=== PATIENT | male | born 1950 | race Caucasian/White ===

== ENCOUNTER → 2019-09-03 12:30 | Outpatient (BNVA) | payer OTHER, SELFPAY | PROVIDERS: Family Provider Internal Medicine; PCP Internal Medicine; Visit Provider Internal Medicine Rheumatology | DX: M25.541 Pain in joints of right hand (principal); M25.542 Pain in joints of left hand; M25.521 Pain in right elbow; M25.522 Pain in left elbow; L40.0 Psoriasis vulgaris; M54.5 Low back pain | CPT/HCPCS: 99213 ==

== ENCOUNTER 2019-10-01 06:43 | Outpatient (CLI) | payer OTHER, SELFPAY ==
[2019-10-01 06:53] VITALS: BMI 28.0
--- NOTE | 2019-10-01 07:00 | SUR.PREOP ---
Awaiting clarification of stress test order. Order states cardiac sestamibi stress request but lacks the test detail, so clarification of stress type needed. Admissions aware. Nuclear injection holding until clarification can be made to electronic order from [facility]. Dr Muñoz's note seached for clarification, but it does not specify which stress type for the myocardial perfusion imaging.
--- NOTE | 2019-10-01 07:51 | ECG_ITS ---
NAME OF STUDY: LEXISCAN SESTAMIBI STRESS TEST INDICATION: Chest Pain PROCEDURE: At the baseline, the EKG revealed sinus bradycardia with a nonspecific ST changes. The baseline blood pressure was 136/108 mm Hg with a heart rate of 57 beats/min. Lexiscan was infused over a period of 20 seconds. A total of 0.4 milligrams of Lexiscan was infused. The stress phase was continued for a total of 5 minutes. Heart rate at the end of the stress phase was 89 with a blood pressure 125/73. The EKG at the peak infusion revealed diffuse nonspecific T wave changes. Sestamibi was injected 20 seconds after the Lexiscan infusion. Blood pressure at the end of the recovery phase was 137/80 with a heart rate of 89 per minute. CONCLUSION: 1. Nonspecific EKG changes with the LexiScan infusion 2. No LexiScan induced chest pain or cardiac arrhythmia 3. Normal blood pressure and heart rate response 4. Sestamibi/sestamibi perfusion scan pending; see separate report. Electronically Signed On 10-01-2019 15:03:49 COUNTY COMMISSIONER by Juanjose Muñoz M.D. [id number]
--- NOTE | 2019-10-01 07:51 | NMCV_ITS ---
NM calli perf SPECT r/s* [id number] Zacarias Moyer Age: 69 Gender: M : 1950 Exam Date: 10/01/2019 07:51 Ordering Phys: Juanjose Muñoz MD ([email or web address]) Technologist: AIME Hutchinson Exam Location: [facility] Indications: Chest pain STRESS TEST Please see separate stress test report in [facility] for full findings IMAGE PROTOCOL Rest/Stress 1 Lexiscan Day Radiopharmaceutical Dose (mCi) Administration Site Administered by Rest: Tc-99m 10.7 IV AIME Hutchinson Sestamibi Stress:Tc-99m 32.6 IV AIME Hutchinson Sestamirio Rest: 01-Oct-2019 60 Discovery 630 Stress: 01-Oct-2019 45 Discovery 630 0.4mg Lexiscan. Images obtained in supine and prone position. SPECT RESULTS Technical Quality: Good Raw Data Analysis: Normal Image Corrections: Patient motion artifact -partial motion correction applied to stress supine images. Summed Stress Score: 0 Summed Rest Score: 0 Summed Difference Score: 0 PERFUSION FINDINGS Patchy areas of slightly decreased tracer uptake were noted in the anterior wall and lateral wall regions. No significant reversibility was noted in these regions. FUNCTIONAL RESULTS (calculated via Gated SPECT) Stress Image LV EF (%): 70 Stress EDV (mL):77 TID: 0.96 Stress ESV (mL):23 FUNCTIONAL FINDINGS: Segmental wall motion analysis revealing no gross wall motion normalities IMPRESSIONS 1. Unremarkable myocardial perfusion imaging. 2. Normal LV ejection fraction of 70%. 3. LV wall motion analysis revealing no gross wall motion normalities. 4. Normal LV volumJe. No significant coronary ischemia, based on the above findings Dr Juanjose Muñoz MD [facility] (Electronically Signed) Final Date: 01 October 2019 13:37 S
--- NOTE | 2019-10-01 10:02 | SUR.PREOP ---
Patient reports no pain or discomfort prior to the start of the procedure.
[2019-10-01] MEDS: regadenoson 0.4 Mg/5 ml Syringe IVP (10:03)
[2019-10-01 10:16] VITALS: BP 137/80; PULSE 92
--- NOTE | 2019-10-01 11:07 | USCV_ITS ---
Zacarias Moyer Age: 69 Gender: M : 1950 Exam Date: 10/01/2019 11:24 Ordering Phys: Juanjose Muñoz MD ([email or web address]) Technologist: Claribel Hernandez Exam Location: [facility] [place] Indication: MURMUR BP: 146 / 84 HR: 67 Rhythm: Sinus Technical Quality: Adequate MEASUREMENTS (Male / Female) Normal Values 2D ECHO LV Diastolic Diameter PLAX 5.0 cm 4.2 - 5.9 / 3.9 - 5.3 cm LV Systolic Diameter PLAX 3.6 cm LV Chamber Size 4.3 cm IVS Diastolic Thickness 0.9 cm 0.6 - 1.0 / 0.6 - 0.9 cm IVS Systolic Thickness 2.2 cm LVPW Diastolic Thickness 0.7 cm 0.6 - 1.0 / 0.6 - 0.9 cm LVPW Systolic Thickness 1.7 cm RV Chamber Size 3.2 cm LVOT Diameter 2.0 cm LV Ejection Fraction 2D Teich 53.3 % LV Ejection Fraction MOD 2C 76.7 % LV Ejection Fraction 2C AL 76.8 % LA Diameter 3.4 cm LA Width 3.7 cm LA Height 4.6 cm RA Width 2.7 cm RA Height 3.7 cm M-MODE LV Diastolic Diameter MM 5.9 cm 4.2 - 5.9 / 3.9 - 5.3 cm LV Systolic Diameter MM 4.1 cm LV Ejection Fraction MM Teich 57.5 % IVS Diastolic Thickness MM 1.5 cm 0.6 - 1.0 / 0.6 - 0.9 cm IVS Systolic Thickness MM 1.1 cm LVPW Diastolic Thickness MM 1.2 cm 0.6 - 1.0 / 0.6 - 0.9 cm LVPW Systolic Thickness MM 1.5 cm Aortic Annulus Diameter 3.4 cm LA Ao Ratio MM 1.2 MV E Point Septal Separation 0.2 cm DOPPLER AV Peak Velocity 250.0 cm/s LVOT Peak Velocity 90.0 cm/s AV Area Cont Eq vti 1.2 cm squared AV Area Cont Eq pk 1.2 cm squared MV Area PHT 3.9 cm squared Mitral E to A Ratio 1.4 MV E' Velocity 10.0 cm/s Mitral E to MV E' Ratio 7.8 Mitral E to LV E' Lateral Ratio 7.8 Mitral E to LV E' Septal Ratio 7.8 TR Peak Velocity 165.9 cm/s TR Peak Gradient 11.0 mmHg TR Mean Velocity 122.1 cm/s TR Mean Gradient 6.7 mmHg TR Velocity Time Integral 42.2 cm TV Peak E Velocity 62.0 cm/s PV Peak Velocity 69.0 cm/s FINDINGS Left Ventricle Normal left ventricular size and systolic function, EF 70% . Mild left ventricular hypertrophy. No regional wall motion abnormalities. Right Ventricle Normal right ventricular size and systolic function. Right Atrium Normal right atrial size. Left Atrium Normal left atrial size. Mitral Valve No gross abnormalities noted Aortic Valve Moderate aortic valve stenosis, mean gradient 15.3 mmHg, MAGGIE 1.2 cm squared. Peak velocity of 2.5 m/s with a peak gradient of 25 mmHg Tricuspid Valve Trace tricuspid valve regurgitation. Pulmonic Valve No gross abnormalities noted Pericardium Normal pericardium without effusion. Aorta Normal ascending aorta dimension. CONCLUSIONS Normal left ventricular size and systolic function, EF 70% . Mild left ventricular hypertrophy. No regional wall motion abnormalities. Moderate aortic valve stenosis, mean gradient 15.3 mmHg, MAGGIE 1.2 cm squared. Peak velocity of 2.5 m/s with a peak gradient of 25 mmHg. Trace tricuspid valve regurgitation. There is no pericardial effusion. There are no intracardiac masses. No previous study is available for comparison. Dr Juanjose Muñoz MD [facility] (Electronically Signed) Final Date: 01 October 2019 13:48 S
== END 2019-10-01 06:44 | disposition home or self-care (01) ==
PROVIDERS: Family Provider Internal Medicine; PCP Internal Medicine; Visit Provider Internal Medicine Cardiovascular Disease
DX: I08.2 Rheumatic disorders of both aortic and tricuspid valves (principal); R07.9 Chest pain, unspecified; R01.1 Cardiac murmur, unspecified
CPT/HCPCS: 78452; 93017; 93306; A9500; J2785

== ENCOUNTER 2021-05-17 09:06 | Outpatient (CLI) | payer OTHER, SELFPAY ==
[2021-05-17 09:36] LABS: Basophils # 0.1 10^3/uL (0.0-0.1); Basophils % 1.1 %; Eosinophils # 0.2 10^3/uL (0.0-0.8); Hematocrit 47.7 % (42.0-52.0); Hemoglobin 15.8 g/dL (11.7-16.6); Lymphocytes # 1.4 10^3/uL (0.8-4.8); Lymphocytes % 22.5 %; Mean Corpuscular HGB Conc 33.1 g/dL (30.0-36.0); Mean Corpuscular Volume 96.8 fl (80-94); Mean Platelet Volume 10.6 fL (7.4-10.4); Monocytes # 0.4 10^3/uL (0.2-0.9); Monocytes % 6.6 %; Neutrophils # 4.06 10^3/uL (1.8-7.7); Neutrophils % 66.5 %; Nucleated Red Blood Cells % 0 %; Platelet Count 157 10^3/cmm (130-400); Red Blood Count 4.93 10^6/uL (4.1-5.3); Red Cell Distribution Width 11.9 % (12.1-15.1); White Blood Count 6.1 10^3/uL (4.0-10.0)
[2021-05-17 10:01] LABS: Alanine Aminotransferase 22 U/L (0-41); Albumin Level 4.2 g/dL (3.5-5.2); Alkaline Phosphatase 74 IU/L (40-130); Anion Gap 12.1 (5-19); Aspartate Amino Transferase 25 U/L (0-40); Blood Urea Nitrogen 7 mg/dL (8-23); Calcium 9.4 mg/dL (8.5-10.5); Carbon Dioxide 31 mmol/L (22-29); Chloride 99 mmol/L (98-107); Globulin 2.7 g/dL (1.3-4.6); Glomerular Filtration Rate 83.7 mL/min (90-130); Glucose 142 mg/dL (65-115); Osmolality Calculated 284 mOsm/kg (285-295); Potassium 5.1 mmol/L (3.5-5.1); Sodium 137 mmol/L (136-145); Total Bilirubin 0.8 mg/dL (0.15-1.2); Total Protein 6.9 g/dL (6.6-8.7)
[2021-05-17 10:46] LABS: HIV 1 & 2 Antibody Non-Reactive (Non-Reactiv); HIV 1 & 2 Antigen Non-Reactive (Non-Reactiv)
[2021-05-17 11:33] LABS: Hepatitis A Antibody IgM Non-Reactive (Nonreactive); Hepatitis B Core AB, Total Non-Reactive (Nonreactive); Hepatitis B Surface AB 3.5 (11.5-1000); Hepatitis B Surface Antigen Non-Reactive (Nonreactive); Hepatitis C Virus Antibody Non-Reactive (Nonreactive)
[2021-05-19 13:24] LABS: Quantiferon Mitogen >10.00 IU/mL; Quantiferon Nil 0.02 IU/mL; Quantiferon Plus TB1 <0.00 IU/mL; Quantiferon TB Gold NEGATIVE (NEGATIVE)
== END 2021-05-17 09:07 | disposition home or self-care (01) ==
LOC: LAB 09:10
PROVIDERS: PCP Family Medicine; Visit Provider Dermatology
DX: L40.0 Psoriasis vulgaris (principal)
CPT/HCPCS: 36415; 80053; 85025; 86480; 86705; 86706; 86709; 86803; 87340; 87806

== ENCOUNTER → 2022-02-01 13:32 | Outpatient (BNVA) | payer OTHER, SELFPAY | PROVIDERS: PCP Family Medicine; Visit Provider Internal Medicine Cardiovascular Disease | DX: I35.0 Nonrheumatic aortic (valve) stenosis (principal); I10 Essential (primary) hypertension; E78.2 Mixed hyperlipidemia; E11.9 Type 2 diabetes mellitus without complications; J44.9 Chronic obstructive pulmonary disease, unspecified; F17.200 Nicotine dependence, unspecified, uncomplicated; Z79.84 Long term (current) use of oral hypoglycemic drugs | CPT/HCPCS: 99214 ==

== ENCOUNTER 2022-02-16 11:27 | Outpatient (RCR) | payer OTHER, SELFPAY | END 2022-02-23 23:59 | disposition home or self-care (01) | LOC: SPT 11:27 | PROVIDERS: PCP Family Medicine; Referring Provider Family Medicine; Visit Provider Family Medicine | DX: M25.511 Pain in right shoulder (principal); M25.611 Stiffness of right shoulder, not elsewhere classified | CPT/HCPCS: 97161 ==

== ENCOUNTER 2022-02-16 13:32 | Outpatient (CLI) | payer OTHER, SELFPAY ==
--- NOTE | 2022-02-16 14:15 | USCV_ITS ---
Zacarias Moyer Age: 71 Gender: M : 1950 Exam Date: 02/16/2022 14:06 Ordering Phys: Juanjose Muñoz MD ([email or web address]) Technologist: JERMAINE [place]am [place] [facility] [place] Indication: BP: 135 / 86 HR: 60 Rhythm: Sinus Technical Quality: Adequate MEASUREMENTS (Male / Female) Normal Values 2D ECHO LV Diastolic Diameter PLAX 4.6 cm 4.2 - 5.9 / 3.9 - 5.3 cm LV Systolic Diameter PLAX 3.7 cm IVS Diastolic Thickness 1.0 cm 0.6 - 1.0 / 0.6 - 0.9 cm IVS Systolic Thickness 1.6 cm LVPW Diastolic Thickness 1.0 cm 0.6 - 1.0 / 0.6 - 0.9 cm LVPW Systolic Thickness 1.4 cm LVOT Diameter 2.0 cm LV Ejection Fraction 2D Teich 40.3 % LV Ejection Fraction MOD 2C 50.0 % LV Ejection Fraction 2C AL 50.3 % LA Diameter 3.4 cm RA Width 3.6 cm RA Height 4.8 cm Aorta at Sinotubular Diameter 2.8 cm M-MODE Aortic Annulus Diameter 2.7 cm LA Ao Ratio MM 1.4 MV E Point Septal Separation 0.5 cm DOPPLER AV Peak Velocity 227.0 cm/s LVOT Peak Velocity 69.0 cm/s AV Area Cont Eq vti 1.1 cm squared AV Area Cont Eq pk 1.0 cm squared MV Area PHT 5.0 cm squared Mitral E to A Ratio 1.4 MV E' Velocity 41.0 cm/s Mitral E to MV E' Ratio 10.4 Mitral E to LV E' Lateral Ratio 9.2 Mitral E to LV E' Septal Ratio 12.1 TR Peak Velocity 219.0 cm/s TR Peak Gradient 19.2 mmHg Right Atrial Pressure 3.0 mmHg Pulmonary Artery Systolic Pressu 22.2 mmHg PV Peak Velocity 87.0 cm/s FINDINGS Left Ventricle Normal left ventricular size and systolic function, EF 56 %. No regional wall motion abnormalities. Grade I/IV diastolic dysfunction (abnormal relaxation filling pattern), normal to mildly elevated filling pressures. Right Ventricle The right ventricle is normal in size and function. Right Atrium The right atrium is normal in size. Left Atrium The left atrium is normal in size. Mitral Valve No gross abnormalities noted Aortic Valve Thickened aortic valve. Moderate aortic valve stenosis, mean gradient 10.4 mmHg, MAGGIE 1.1 cm squared. Tricuspid Valve Trace tricuspid valve regurgitation. Estimated pulmonary artery peak systolic pressure 22 mmHg Pulmonic Valve No gross abnormalities noted Pericardium Normal pericardium without effusion. Aorta Normal ascending aorta dimension. IVC The inferior vena cava pulmonary and hepatic veins appear normal. CONCLUSIONS Normal left ventricular size and systolic function, EF 56 %. No regional wall motion abnormalities. Grade I/IV diastolic dysfunction (abnormal relaxation filling pattern), normal to mildly elevated filling pressures. Moderate aortic valve stenosis, mean gradient 10.4 mmHg, MAGGIE 1.1 cm squared. Trace tricuspid valve regurgitation. Estimated pulmonary artery peak systolic pressure 22 mmHg. There is no pericardial effusion. There are no intracardiac masses. Compared to the study from 10/01/2019, there may not be a significant change Dr Juanjose Muñoz MD [facility] (Electronically Signed) Final Date: 20 February 2022 08:53 S
== END 2022-02-16 13:33 | disposition home or self-care (01) ==
LOC: RAD 13:32
PROVIDERS: PCP Family Medicine; Visit Provider Internal Medicine Cardiovascular Disease
DX: R06.00 Dyspnea, unspecified (principal); I35.0 Nonrheumatic aortic (valve) stenosis
CPT/HCPCS: 93306

== ENCOUNTER 2022-02-24 06:00 | Outpatient (RCR) | payer OTHER, SELFPAY | END 2022-03-26 23:59 | disposition home or self-care (01) | LOC: SPT 06:00 | PROVIDERS: PCP Family Medicine; Referring Provider Family Medicine; Visit Provider Family Medicine | DX: M25.511 Pain in right shoulder (principal); M25.611 Stiffness of right shoulder, not elsewhere classified | CPT/HCPCS: 97110 ==

== ENCOUNTER 2022-03-27 06:00 | Outpatient (RCR) | payer OTHER, SELFPAY | END 2022-04-26 23:59 | disposition home or self-care (01) | LOC: SPT 06:00 | PROVIDERS: PCP Family Medicine; Visit Provider Family Medicine | DX: M25.511 Pain in right shoulder (principal) | CPT/HCPCS: 97110 ==

== ENCOUNTER 2022-06-13 15:07 | Outpatient (CLI) | payer OTHER, SELFPAY ==
[2022-06-13 16:04] LABS: Basophils # 0.1 10^3/uL (0.0-0.1); Basophils % 0.8 %; Eosinophils # 0.2 10^3/uL (0.0-0.8); Eosinophils % 2.3 %; Hemoglobin 14.4 g/dL (11.7-16.6); Lymphocytes # 1.4 10^3/uL (0.8-4.8); Lymphocytes % 17.8 %; Mean Corpuscular HGB Conc 33.5 g/dL (30.0-36.0); Mean Corpuscular Hemoglobin 33.7 pg (28.0-34.0); Mean Corpuscular Volume 100.7 fl (80-94); Monocytes # 0.4 10^3/uL (0.2-0.9); Monocytes % 4.9 %; Neutrophils # 5.84 10^3/uL (1.8-7.7); Neutrophils % 73.8 %; Nucleated Red Blood Cells % 0 %; Platelet Count 156 10^3/cmm (130-400); Red Blood Count 4.27 10^6/uL (4.1-5.3); Red Cell Distribution Width 12.2 % (12.1-15.1); White Blood Count 7.9 10^3/uL (4.0-10.0)
[2022-06-13 16:28] LABS: Alanine Aminotransferase 11 U/L (0-41); Albumin Level 4.2 g/dL (3.5-5.2); Alkaline Phosphatase 64 U/L (40-130); Anion Gap 13.2 (5-19); Aspartate Amino Transferase 16 U/L (0-40); Blood Urea Nitrogen 7 mg/dL (8-23); Carbon Dioxide 29 mmol/L (22-29); Chloride 98 mmol/L (98-107); Globulin 2.5 g/dL (1.3-4.6); Glucose 94 mg/dL (65-115); Osmolality Calculated 280 mOsm/kg (285-295); Potassium 4.2 mmol/L (3.5-5.1); Sodium 136 mmol/L (136-145); Total Bilirubin 0.8 mg/dL (0.15-1.2); Total Protein 6.7 g/dL (6.6-8.7)
[2022-06-13 16:53] LABS: Hepatitis A Antibody IgM Non-Reactive (Nonreactive); Hepatitis B Core AB, Total Non-Reactive (Nonreactive); Hepatitis B Surface AB 3.5 (11.5-1000); Hepatitis B Surface Antigen Non-Reactive (Nonreactive); Hepatitis C Virus Antibody Non-Reactive (Nonreactive)
[2022-06-13 18:39] LABS: HIV 1 & 2 Antibody Non-Reactive (Non-Reactiv); HIV 1 & 2 Antigen Non-Reactive (Non-Reactiv)
[2022-06-15 13:04] LABS: Quantiferon Mitogen >10.00 IU/mL; Quantiferon Nil 0.01 IU/mL; Quantiferon TB Gold NEGATIVE (NEGATIVE)
== END 2022-06-13 15:08 | disposition home or self-care (01) ==
LOC: LAB 15:11
PROVIDERS: PCP Family Medicine; Visit Provider Nurse Practitioner Family
DX: Z79.899 Other long term (current) drug therapy (principal); L40.0 Psoriasis vulgaris
CPT/HCPCS: 36415; 80053; 85025; 86480; 86705; 86706; 86709; 86803; 87340; 87806

== ENCOUNTER → 2022-08-09 15:36 | Outpatient (BNVA) | payer OTHER, SELFPAY | PROVIDERS: PCP Family Medicine; Visit Provider Internal Medicine Cardiovascular Disease | DX: R07.89 Other chest pain (principal); I35.0 Nonrheumatic aortic (valve) stenosis; I10 Essential (primary) hypertension; E78.2 Mixed hyperlipidemia; Z79.84 Long term (current) use of oral hypoglycemic drugs; E11.9 Type 2 diabetes mellitus without complications; J44.9 Chronic obstructive pulmonary disease, unspecified; F17.200 Nicotine dependence, unspecified, uncomplicated | CPT/HCPCS: 99214 ==

== ENCOUNTER → 2022-09-04 12:55 | Outpatient (BNVA) | payer OTHER, SELFPAY | PROVIDERS: PCP Family Medicine; Visit Provider Specialist | DX: S83.206D Unspecified tear of unspecified meniscus, current injury, right knee, subsequent encounter (principal); V86.95XD Unspecified occupant of 3- or 4- wheeled all-terrain vehicle (ATV) injured in nontraffic accident, subsequent encounter; M25.561 Pain in right knee | CPT/HCPCS: 73560; 73565; 99204 ==

== ENCOUNTER 2022-09-19 09:19 | Outpatient (CLI) | payer OTHER, SELFPAY ==
--- NOTE | 2022-09-19 09:30 | MR_ITS ---
WS: [id number] MRI RIGHT KNEE HISTORY: right knee pain, positive Juliana's sign COMPARISON: MRI 03/30/2008. Prior radiograph 09/04/2022 Anterior cruciate ligament: Anterior cruciate ligament is abnormal. Horizontal orientation of the cru ciate and abuts the PCL. Torn ACL was noted on the prior MRI. The ACL is scarred down and fibrosis to the PCL. There is no edema within the ACL to suggest an acute injury. Posterior cruciate ligament: Intact. Medial collateral ligament: Intact. Posterior lateral corner structures: Intact. Medial menisci: Abnormal posterior horn. Small caliber with blunting and abnormal signal throughout t he meniscus into the meniscal root. Complex tear identified. Similar appearance to the prior study. Lateral meniscus: Abnormal posterior meniscus. Blunting of the free edge with intrasubstance degenera tion. There is increased fluid and T2 signal at the meniscal capsular junction suggesting partial sep aration. Extensor mechanism: Distal quadriceps tendon and patellar tendons are intact. Fluid and soft tissue: Small joint effusion. Small Amaro's cyst. Osseous and articular structures: Patellofemoral compartment: Minimal joint space narrowing. No significant cartilage defect. Medial compartment: Moderate narrowing of the medial compartment with complete loss of cartilage invo lving the femoral condyle and tibial plateau. Small subchondral cystic changes along the weightbearin g surface of the femoral condyle. Lateral compartment: Mild narrowing of the lateral compartment. Thinning and fissuring of the cartila ge. Mild posterior subluxation of the femoral condyles with respect to the tibial plateau. Very small popliteal cyst or ganglion measures 16 x 8 mm. MR/MR knee RT wo con* [id number] IMPRESSION: 1. 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 2. Complex tear posterior horn medial meniscus. Tear involves a large portion of the meniscus. 3. Blunted free edge posterior horn lateral meniscus. Increased fluid near the meniscal capsular junction suggesting at least a partial separation. 4. Moderate narrowing medial compartment with complete loss of cartilage. 5. Small joint effusion and small Amaro's cyst.
== END 2022-09-19 09:20 | disposition home or self-care (01) ==
LOC: RAD 09:23
PROVIDERS: PCP Family Medicine; Visit Provider Specialist
DX: M71.21 Synovial cyst of popliteal space [Baker], right knee; S83.241A Other tear of medial meniscus, current injury, right knee, initial encounter; X58.XXXA Exposure to other specified factors, initial encounter
CPT/HCPCS: 73721

== ENCOUNTER 2022-09-25 08:52 | Outpatient (CLI) | payer OTHER, SELFPAY ==
[2022-09-25 09:06] VITALS: BMI 24.6
--- NOTE | 2022-09-25 09:07 | NMCV_ITS ---
NM calli perf SPECT r/s* [id number] Zacarias Moyer Age: 72 Gender: M : 1950 Exam Date: 09/25/2022 09:48 Ordering Phys: Juanjose Muñoz MD ([email or web address]) Technologist: AIME Tomas Exam Location: [facility] Indications: CORONARY ANGIOPLASTY STATUS STRESS TEST Please [facility] IMAGE PROTOCOL Rest/Stress 1 Lexiscan Day Radiopharmaceutical Dose (mCi) Administration Site Administered by Rest: Tc-99m 10.6 IV AIME Tomas Sestamibi Stress:Tc-99m 32.5 IV AIME Hutchinson Sestamibi Rest: 25-Sep-2022 60 Discovery 630 Stress: 25-Sep-2022 30 Discovery 630 0.4mg Lexiscan. Images obtained in supine and prone position. SPECT RESULTS Technical Quality: Excellent Raw Data Analysis: Normal Image Corrections: No attenuation or motion correction applied Summed Stress Score: 0 Summed Rest Score: 0 Summed Difference Score: 0 PERFUSION FINDINGS Homogenous radiotracer uptake is seen throughout the myocardium. FUNCTIONAL RESULTS (calculated via Gated SPECT) Stress Image LV EF (%): 63 Stress EDV (mL):89 TID: 1.09 Stress ESV (mL):33 FUNCTIONAL FINDINGS: There is normal left ventricular systolic function. IMPRESSIONS 1. Normal myocardial perfusion imaging with no evidence of ischemia 2. LV systolic function is normal Tor Perry MD (Electronically Signed) Final Date: 25 September 2022 12:14 S
--- NOTE | 2022-09-25 09:07 | ECG_ITS ---
[facility] Test Date: 2022-09-25 Pat Name: Zacarias Moyer Department: Room: Gender: Male Materials Supervisor: Sarah MatuteReal : 1950 Requested By: Juanjose Muñoz Order Number: [id number] Natalie MD: Tor Perry M.D. Interpretive Statements NAME OF STUDY: LEXISCAN SESTAMIBI STRESS TEST INDICATION: [Chest Pain, ] Procedure: At the baseline, the blood pressure was 122/73 mmHg with a heart rate of 60 bpm. The electrocardiogram showed normal sinus rhythm, normal axis with normal ST and T's. The Lexiscan was infused over a period of 20 seconds. A total of 0.4 mg of Lexiscan was infused. The stress phase was continued for a total of 5 minutes. Heart rate was at the end of stress phase was 95 bpm and a blood pressure of 136/72 mmHg. The EKG at the peak infusion revealed normal sinus rhythm with no significant ST-T wave changes. Sestamibi was injected 20 seconds after the Lexiscan infusion. Blood pressure at the end of recovery phase was not recorded with a heart rate of 85 bpm. Conclusion: 1. Normal EKG response to Lexiscan infusion 2. No Lexiscan induced chest pain or cardiac arrhythmia. 3. Normal blood pressure and heart rate response. 4. Sestamibi/sestamibi perfusion scan pending; see separate report. Electronically Signed On 10-21-2022 22:51:09 NEUROSURGEON by Tor Perry M.D. [id number]
[2022-09-25] MEDS: regadenoson 0.4 Mg/5 ml Syringe IVP (10:16)
[2022-09-25 10:30] VITALS: BP 124/93; PULSE 85
== END 2022-09-25 08:53 | disposition home or self-care (01) ==
PROVIDERS: PCP Family Medicine; Visit Provider Internal Medicine Cardiovascular Disease
DX: R07.9 Chest pain, unspecified (principal); Z98.61 Coronary angioplasty status
CPT/HCPCS: 36415; 78452; 93017; 96374; A9500; J2785

== ENCOUNTER 2022-10-02 10:11 | Outpatient (CLI) | payer OTHER, SELFPAY ==
--- NOTE | 2022-10-02 10:29 | USCV_ITS ---
Zacarias Moyer Age: 72 Gender: M : 1950 Exam Date: 10/02/2022 10:42 Ordering Phys: Candace Wagoner MD Technologist: TALIA Exam Location: [facility] [place] Indication: AAA Screen HISTORY: Diameter (cm) AP x Transverse x Length Velocity (cm/s) Waveform Prox Aorta: 2.44 x 1.96 x 73.50 Triphasic Mid Aorta: 2.13 x 1.96 x 56.90 Triphasic Distal Aorta: 2.66 x 2.36 x 2.82 72.00 Triphasic Right Iliac Prox: 1.32 x 0.92 x 62.00 Triphasic Left Iliac Prox: 1.44 x 1.23 x 87.50 Triphasic Stent Prox Landing x x Aneurysmal Sac Max x x Lt Lat Sac Dim Rt Lat Sac Dim Stent Dist Landing x x Right Iliac Stent x x Left Iliac Stent x x Right Renal Art Left Renal Art FINDINGS: Small fusiform AAA seen distally. CONCLUSIONS Small fusiform aneurysm distal abdominal aorta measuring 2.6 x 2.3 x 2.8cm AP x trans x CC Normal common iliac arteries Mars Chen MD (Electronically Signed) Final Date: 02 October 2022 15:55 S
== END 2022-10-02 10:12 | disposition home or self-care (01) ==
LOC: RAD 10:22
PROVIDERS: PCP Family Medicine; Visit Provider Family Medicine
DX: Z13.6 Encounter for screening for cardiovascular disorders (principal); I71.40 Abdominal aortic aneurysm, without rupture, unspecified
CPT/HCPCS: 76706

== ENCOUNTER → 2022-10-10 13:44 | Outpatient (BNVA) | payer OTHER, SELFPAY | PROVIDERS: PCP Family Medicine; Visit Provider Otolaryngology | DX: H61.23 Impacted cerumen, bilateral (principal); H92.01 Otalgia, right ear | CPT/HCPCS: 69210; 99202 ==

== ENCOUNTER → 2022-10-11 13:01 | Outpatient (BNVA) | payer OTHER, SELFPAY | PROVIDERS: PCP Family Medicine; Visit Provider Specialist | DX: M17.11 Unilateral primary osteoarthritis, right knee (principal) | CPT/HCPCS: 99214 ==

== ENCOUNTER 2022-10-16 06:51 | Outpatient (CLI) | payer OTHER, SELFPAY ==
--- NOTE | 2022-10-16 | CT_ITS ---
WS: [id number] CT NECK TECHNIQUE: Contrast-enhanced CT of the neck with coronal and sagittal reformatted images. CLINICAL INFORMATION: RIGHT SIDE LYMPH NODE COMPARISON: None. DLP: 228.[address] scans at [facility] use at least one of these dose optimization techniques: automated e xposure control; mA and/or kV adjustment per patient size (includes targeted exams where dose is matc hed to clinical indication); or iterative reconstruction. FINDINGS: Parotid glands are normal. Normal submandibular glands. Tongue base appears normal. Normal posterior nasopharynx. Normal parapharyngeal fat. No evidence of supraglottic or glottic mass. Normal thyroid g land. Mastoid air cells and paranasal sinuses are well aerated. Lung apices are well aerated. Mild carotid bulb calcification. No cervical lymphadenopathy. Moderate spondylitic changes cervical spine. CT/CT neck w con* [id number] IMPRESSION: 1. No acute neck findings. 2. No cervical lymphadenopathy. 3. Normal salivary glands. 4. No evidence of supraglottic or glottic mass.
[2022-10-16] MEDS: iohexol 350 mg/mL 500 mL Btl (per mL) IV (07:18)
[2022-10-16 07:42] LABS: Blood Urea Nitrogen 11 mg/dL (8-23)
== END 2022-10-16 06:52 | disposition home or self-care (01) ==
LOC: RAD 06:52
PROVIDERS: PCP Family Medicine; Visit Provider Family Medicine
DX: Z01.89 Encounter for other specified special examinations (principal); R59.0 Localized enlarged lymph nodes
CPT/HCPCS: 70491; 82565; 84520; Q9967

== ENCOUNTER 2022-10-20 10:08 | Outpatient (CLI) | payer OTHER, SELFPAY ==
--- NOTE | 2022-10-20 10:00 | CT_ITS ---
WS: [id number] CT RIGHT knee, noncontrast HISTORY: Right Total Knee Arthroplasty with ESTEFANY guidance TECHNIQUE: Protocol for ESTEFANY total knee replacement has been obtained. This includes axial imaging th rough the RIGHT hip, RIGHT knee and RIGHT ankle. DLP: 990.17 mGy.cm COMPARISON: Radiographs 09/04/2022 Pelvis: No destructive bone lesions or significant joint space narrowing. RIGHT knee: Mild tricompartment osteoarthritis and joint space narrowing. No fractures or bone destru ction. Small amount of edema and a small joint effusion. Scattered vascular calcifications. RIGHT ankle: Negative. CT/CT knee RT ESTEFANY IMPRESSION: CT imaging provided for ESTEFANY robotic total knee replacement.
== END 2022-10-20 10:09 | disposition home or self-care (01) ==
LOC: RAD 10:10
PROVIDERS: PCP Family Medicine; Visit Provider Specialist
DX: M17.11 Unilateral primary osteoarthritis, right knee (principal)
CPT/HCPCS: 73700

== ENCOUNTER 2022-10-24 11:17 | Outpatient (CLI) | payer OTHER, SELFPAY | END 2022-10-24 11:18 | disposition home or self-care (01) | LOC: RT 11-01 11:18 | PROVIDERS: PCP Family Medicine; Visit Provider Specialist | DX: Z13.6 Encounter for screening for cardiovascular disorders (principal) | CPT/HCPCS: 93005 ==

== ENCOUNTER → 2022-10-30 14:54 | Outpatient (BNVA) | payer OTHER, SELFPAY | PROVIDERS: PCP Family Medicine; Referring Provider Family Medicine; Visit Provider Specialist | DX: M25.511 Pain in right shoulder (principal) | CPT/HCPCS: 73030; 99213 ==

== ENCOUNTER 2022-10-31 09:55 | Observation (INO) | payer OTHER, SELFPAY ==
[2022-10-24 10:22] VITALS: BMI 24.6
--- NOTE | 2022-10-24 10:43 | ECG_ITS ---
[facility] Test Date: 2022-10-24 Pat Name: Zacarias Moyer Department: Room: Gender: Male Livestock Trucker: : 1950 Requested By: Cristobal Vences Order Number: [id number] Natalie MD: Juanjose Muñoz M.D. Measurements Intervals Olive Rate: 63 P: 56 [place]: 154 QRS: 57 QRSD: 88 T: 56 QT: 385 QTc: 396 Interpretive Statements SINUS RHYTHM Compared to ECG 02/12/2018 13:42:40 Sinus bradycardia no longer present Sinus arrhythmia no longer present Electronically Signed On 10-25-2022 16:17:24 PULP MILL OPERATOR by uJanjose Muñoz M.D. [email or web address] [email or web address] county memorial [email or web address]. charles hospitalSterling Hospice Partners/store/[id number]
[2022-10-24 11:24] LABS: Add Urine Microscopic? NO; Bilirubin Urine Neg (Negative); Blood Urine Neg (Negative); Glucose Urine UA Norm (Normal); Ketones Urine Negative (Negative); Nitrate Urine Negative (Negative); Protein Urine Neg (Negative); Specific Gravity, Urine 1.015 (1.005-1.030); Urine Appearance Clear (CLEAR); Urine Color Yellow (Yellow); Urobilinogen Urine Norm (Negative); pH Urine 6 (5-7)
[2022-10-24 11:25] LABS: Basophils % 0.9 %; Eosinophils # 0.1 10^3/uL (0.0-0.8); Eosinophils % 2.8 %; Hematocrit 45.4 % (42.0-52.0); Hemoglobin 15.1 g/dL (11.7-16.6); Leukocyte Esterase Urine Negative (Negative); Lymphocytes # 1.3 10^3/uL (0.8-4.8); Lymphocytes % 28.6 %; Mean Corpuscular HGB Conc 33.3 g/dL (30.0-36.0); Mean Corpuscular Hemoglobin 31.8 pg (28.0-34.0); Mean Corpuscular Volume 95.6 fl (80-94); Mean Platelet Volume 11.2 fL (7.4-10.4); Monocytes # 0.3 10^3/uL (0.2-0.9); Monocytes % 6.1 %; Neutrophils # 2.83 10^3/uL (1.8-7.7); Neutrophils % 61.4 %; Nucleated Red Blood Cells % 0 %; Platelet Count 160 10^3/cmm (130-400); Red Blood Count 4.75 10^6/uL (4.1-5.3); Red Cell Distribution Width 11.9 % (12.1-15.1); White Blood Count 4.6 10^3/uL (4.0-10.0)
[2022-10-24 11:26] LABS: Charge for UA Resulting for Rev
[2022-10-24 11:43] LABS: Alanine Aminotransferase 10 U/L (0-41); Albumin Level 4.4 g/dL (3.5-5.2); Alkaline Phosphatase 67 U/L (40-130); Anion Gap 13.4 (5-19); Aspartate Amino Transferase 17 U/L (0-40); Blood Urea Nitrogen 10 mg/dL (8-23); Calcium 9.2 mg/dL (8.5-10.5); Carbon Dioxide 29 mmol/L (22-29); Chloride 100 mmol/L (98-107); Globulin 2.6 g/dL (1.3-4.6); Glucose 147 mg/dL (65-115); Osmolality Calculated 288 mOsm/kg (285-295); Potassium 4.4 mmol/L (3.5-5.1); Sodium 138 mmol/L (136-145)
--- NOTE | 2022-10-24 16:32 | P.ANESASSM_ITS ---
Pre-Anesthetic Assessment Height/Weight: Height 1.88 m Weight 87.09 kg Operation Date: 10/31/22 07:00 Proposed Procedures p RIGHT TOTAL KNEE ARHTROPLASTY WITH ESTEFANY GUIDANCE 94513,M17.10(Right) - Nancy Montez MD Familial anesthetic complications: none Was Beta Zen taken within 24 hours: Yes Was Clonidine taken within 24 hours: N/A Social Tobacco and No alcohol Exam alert, oriented x 3 and regular rate & rhythm rhonchi Airway Submandibular: within normal limits Cervical ROM: within normal limits Mallampati: Class II Dentition: false Pulmonary Chronic Obstructive Pulmonary Disease CV/HEM Hypertension and Murmur (mod ) Immunosuppressed for psoriasis (Humira) ?CONCLUSIONS ?Normal left ventricular size and systolic function, EF 56 %. No ?regional wall motion abnormalities. Grade I/IV diastolic ?dysfunction (abnormal relaxation filling pattern), normal to ?mildly elevated filling pressures. ?Moderate aortic valve stenosis, mean gradient 10.4 mmHg, MAGGIE 1.1 ?cm squared. ?Trace tricuspid valve regurgitation.? Estimated pulmonary artery ?peak systolic pressure 22 mmHg. ?There is no pericardial effusion. ?There are no intracardiac masses. ?Compared to the study from 10/01/2019, there may not be a ?significant change ?Dr Juanjose Muñoz MD [facility] ?(Electronically Signed) ?Final Date:? ? ? 20 February 2022 GI Gastroesophageal Reflux Disease Metabolic Diabetes Mellitus [facility] Lower Back Pain and Osteoarthritis/DJD H/O back surgery Anesthetic Plan ASA status: 3 Anesthesia: Choice Other: Discussed both SAB (consider previous spine surgery and ) and GETA, as well as adductor blk Medications/Allergies Home Medications Medication Instructions Recorded Confirmed Last Taken Type atorvastatin 80 mg tablet See Rx Instructions PO DAILY 08/25/19 10/24/22 10/23/22 History cholecalciferol (vitamin D3) 50 4,000 unit PO DAILY 08/25/19 10/24/22 10/23/22 History mcg (2,000 unit) tablet metformin 850 mg tablet 850 mg PO BID 08/25/19 10/24/22 10/24/22 History omeprazole 20 mg capsule,delayed 20 mg PO DAILY 08/25/19 10/24/22 10/24/22 History release gabapentin 300 mg capsule 300 mg PO BID 07/28/20 10/24/22 10/23/22 History lisinopril 10 mg tablet 10 mg PO DAILY 30 days #30 tabs 07/28/20 10/24/22 10/23/22 Rx metoprolol succinate 25 mg 25 mg PO DAILY 07/28/20 10/24/22 10/24/22 History tablet,extended release 24 hr ascorbate calcium (vitamin C) 500 500 mg PO DAILY 02/24/21 10/24/22 10/10/22 History mg tablet clobetasol 0.05 % topical ointment 1 applic topical BID 2 weeks #60 06/13/22 10/24/22 10/23/22 Rx grams ketoconazole 2 % shampoo 1 applic topical .2 x weekly #120 06/13/22 10/24/22 10/23/22 Rx mL Nitrostat 0.4 mg sublingual tablet 0.4 mg sublingual Q5M PRN chest 08/09/22 10/24/22 10/10/22 Rx (nitroglycerin) pain #30 tabs glipizide 5 mg tablet 5 mg PO BID 08/09/22 10/24/22 10/10/22 History adalimumab 40 mg/0.4 mL 40 mg (0.4 mL) SUBCUT .COMPLEX #2 10/20/22 10/24/22 10/13/22 Rx subcutaneous pen kit (Humira(CF) ea Pen) Allergies Allergy/AdvReac Type Severity Reaction Status Date / Time No Known Allergies Allergy Verified 10/24/22 10:09 [facility] Anesthesia Medical History Arthralgia of both elbows Arthralgia of both hands COPD (chronic obstructive pulmonary disease) Diabetes Heart murmur Hyperlipidemia Hypertension Plaque psoriasis Surgical History History of appendectomy History of back surgery 1983 in [place] History of hernia repair History of knee surgery Hx of cataract extraction Hx of hand surgery Family History Mother Cancer Father Diabetes Heart disease CAD (coronary artery disease) Dementia Stroke Brother Stroke CAD (coronary artery disease) Diabetes Denies family history of Clotting disorder Chronic kidney disease (CKD) Suicide Anesthesia complication Bleeding disorder Lung disease Social History Smoking and tobacco status: heavy tobacco smoker Alcohol intake: unknown Data Anesthesia 10/24/22 10:40 10/24/22 10:40 Short CBC 10/24/22 Range/Units 10:40 WBC 4.6 (4.0-10.0) 10^3/uL Hgb 15.1 (11.7-16.6) g/dL Hct 45.4 (42.0-52.0) % MCV 95.6 H (80-94) fl Plt Count 160 (130-400) 10^3/cmm Neut % (Auto) 61.4 % Neut # (Auto) 2.83 (1.8-7.7) 10^3/uL BMP 10/24/22 10:40 Sodium 138 Potassium 4.4 Chloride 100 Carbon Dioxide 29 BUN 10 Creatinine 1.1 Glucose 147 H Calcium 9.2 Liver Function 10/24/22 Range/Units 10:40 Total Bilirubin 1.0 (0.15-1.2) mg/dL AST 17 (0-40) U/L ALT 10 (0-41) U/L Alkaline Phosphatase 67 (40-130) U/L Albumin 4.4 (3.5-5.2) g/dL Urine 10/24/22 Range/Units 10:40 Urine Color Yellow (Yellow) Urine Appearance Clear (CLEAR) Urine pH 6 (5-7) Ur Specific Weems 1.015 (1.005-1.030) Urine Protein Neg (Negative) Urine Glucose (UA) Norm (Normal) Urine Ketones Negative (Negative) Urine Nitrate Negative (Negative) Urine Bilirubin Neg (Negative) Ur Leukocyte Esterase Negative (Negative) Cardiac Studies: Echocardiogram 02/16/22 Echocardiogram Ultrasound 10/01/19 Sestamibi Stress Test (Cardiology) 09/25
[2022-10-31] VITALS (15 sets, daily range): BP systolic 90–146; BP diastolic 57–80; PULSE 53–90; RESP 14–18; TEMP 36.1–36.8; O2SAT 95–100
[2022-10-31] MEDS: gabapentin 300 mg Capsule PO ×2 (06:03→20:33)
[2022-10-31] MEDS: acetaminophen 1,000 MG/100 ML PIGGYBACK 400 MG IV ×3 (06:03→22:02)
[2022-10-31] MEDS: CELEcoxib 200 mg Capsule 400 MG PO (06:03)
[2022-10-31] MEDS: sodium chloride 0.9% 1,000 ML 30 ML IV (06:03)
[2022-10-31 06:14] LABS: Glucose Point of Care 101 mg/dL (70-110)
--- NOTE | 2022-10-31 06:52 | W.PM.OPSUD ---
Surgery/Procedure H&P Update DATE OF PROCEDURE: October 31, 2022 DATE H&P PERFORMED: 10/30/22 H&P UPDATE INFORMATION: I have reviewed H&P completed within last 30 days, I have examined patient prior to procedure, No changes to prior documentation and H&P is in [facility] [place] on date indicated PREOP DIAGNOSIS: Primary osteoarthritis right knee PLANNED PROCEDURE: Operation Date: 10/31/22 07:00 Proposed Procedures p RIGHT TOTAL KNEE ARHTROPLASTY WITH ESTEFANY GUIDANCE 64805,M17.10(Right) - Nancy Montez MD Related Problem List Diagnoses (1) Primary osteoarthritis of right knee:
[2022-10-31] MEDS: ceFAZolin 2,000 MG in sodium chloride 0.9% (plus) 50 ML 100 MG IV ×3 (07:02→22:06)
--- NOTE | 2022-10-31 07:34 | P.ANESUD_ITS ---
Pre-Anesthetic Update Pre-Anesthetic Assessment: Date of Surgery/Procedure: 10/31/22 Preop Antonia gnosis: Primary osteoarthritis right knee Proposed Procedure: Operation Date: 10/31/22 07:00 Proposed Procedures p RIGHT TOTAL KNEE ARHTROPLASTY WITH ESTEFANY GUIDANCE 38131,M17.10(Right) - Nancy Montez MD Any changes to Pre-Anesthetic Assessment?: No Last Intake: Intake Last Liquid Date 10/30/22 Last Liquid Time 18:30 Last Solid Date 10/30/22 Last Solid Time 18:30 Vitals: Temperature 97.5 F L 10/31/22 05:41 Temperature Source Temporal Artery S can 10/31/22 05:41 Pulse Rate 65 10/31/22 05:41 Pulse Rhythm 10/31/22 05:42 Pulse Strength 3+ Normal 10/31/22 05:42 Respiratory Rate 18 10/31/22 05:41 Blood Pressure 120/70 10/31/22 05:41 Blood Pressure Ilana n 86 10/31/22 05:41 Pulse Oximetry 100 10/31/22 05:41 Oxygen Delivery Me thod 10/31/22 05:42 Exam: Pre-Anes Outpt Exam: alert, oriented x 3, clear to auscultation bilaterally and regular rate & rhythm Cardiac Studies: Echocardiogram 02/16/22 Echocardiogram Ultrasound 10/01/19 Sestamibi Stress Test (Cardiology) 09/25 Anesthesia Procedures Date of Procedure: 10/31/22 Nerve Block: Nerve Block 1: Main Anesthesia: spinal anesthesia block Time Out Performed: Yes Consent: from patient, risks and benefits reviewed and patient agrees to proceed Nerve block location: adductor canal, popliteal and other (geniculars) Anesthesia monitors applied: pulse oximetry, EKG, BP cuff and oxygen Nerve block position: semi sitting Anesthetic Used: ropivicaine 0.5% and with decadron Amount of anesthesia used (mL): 60 Ultrasound used to: recognize landmarks and visualize and ID femerol nerve Nerve Stimulator Used?: No Interscalene/Femoral BLK: 4 stimuplex 21 g needle used for position and inplane approach Injection: neg aspiration of heme and paresthesia +/- (negative) Patient Tolerated Procedure: well and no complications Complications: none
[2022-10-31] MEDS: tranexamic acid 1,000 mg/10mL SDV 1000 MG IRRIGATION (07:49)
[2022-10-31] MEDS: ceFAZolin 1,000 mg SDV 1000 MG IRRIGATION (07:49)
[2022-10-31] MEDS: vancomycin 1,000 MG SDV 1000 MG XX (07:50)
--- NOTE | 2022-10-31 09:56 | XRR_ITS ---
PROCEDURE INFORMATION: Exam: XR Right Knee Exam date and time: 10/31/2022 10:09 PM Age: 72 years old Clinical indication: Device placement; Joint replacement hardware; Prior surgery; Surgery date: Post-operative (0-2 days); Surgery type: Right total knee TECHNIQUE: Imaging protocol: Radiologic exam of the right knee. Views: 3 views. COMPARISON: CT knee RT [facility] 10/20/2022 10:29 AM FINDINGS: Bones/joints: Intact well-aligned total knee prosthesis. No fracture. Soft tissues: Expected postoperative appearance of the soft tissues. XR/XR knee RT 3V* [id number] IMPRESSION: Expected postoperative appearance of the knee.
--- NOTE | 2022-10-31 10:03 | P.OP_ITS ---
Operative Report Date of procedure: October 31, 2022 Pre-op diagnosis: Primary osteoarthritis right knee Post-op diagnosis: Primary osteoarthritis right knee Post-op findings: Severe degenerative osteoarthritis with slight flexion contracture Procedure done: Right total knee arthroplasty with Boby guidance Implants: The [employer] total knee system with a size 6 triathlon beaded cruciate retaining femur right, a triathlon titanium tibial component size 6 beaded, a triathlon X3 tibial bearing CS insert size 6 X 9 mm and a beaded triathlon titanium asymmetric patella size 35 x 10 mm Specimens removed/disposition: Bone, disposed of Surgeon: Nancy Montez Managing Manager[facility] Anesthesia: MAC (With spinal, ASA 3) Estimated blood loss (mL): 125 Tourniquet time (min): 0 IV fluids (mL): 1,000 Urine output (mL): 200 Complications: None Findings: Severe degenerative osteoarthritic change with slight flexion contracture Condition: stable Disposition: PACU (Then to floor for postoperative rehabilitation and pain management) Brief History: This is an established 72 year old male patient here today for right total knee arthroplasty. He rates his pain a 6/10 at today's visit. He explains his pain has remained the same overall, but some days the pain gets worse. He reports constant pain that contributes to his lack of sleep. He has significant limitat ions in his activities of daily living. He states he walks as much as he can in spite of his pain. He states his pain is relieved by the brace. He understands the risks and complications of right total knee replacement, questions are answered, and consents are signed. Procedure: The patient was brought to the operating theater, and after undergoing spinal anesthesia with supplemental MAC, as well as an adductor canal block, ASA 3, the right lower extremity was prepped with Dura-Prep and draped in usual fashion following placement of a tourniquet high on the leg. The leg was then draped free. Tourniquet was not elevated during the case. A surgical pause was performed, and at the time of the surgical pause, we confirmed the site and side of surgery. Additionally, we confirmed the appropriate and timely administration of preoperative antibiotics, Ancef 2 g and Transexemic acid 1 g.? The availability of equipment was confirmed, and the patient's identity was verbalized as well.? An additional transexemic acid 1 g was given at the end of the surgical procedure as well. Following the surgical pause, an incision was made centering over the patella continuing proximally and distally as necessary to allow access to the knee joint. Dissection continued through skin and soft tissues using a scalpel. Hemostasis was obtained using electrocautery. The skin incision was followed by a median parapatellar arthrotomy. The leg was extended and the patella was able to be displaced laterally.? Appropriate arrays and markers were placed in ap propriate position for use of the Boby.? Preoperative planning had been accomplished and was discussed in detail with the [facility] international sales representative.? Intraoperative mapping of the femur and tibia was accomplished after the arrays were placed.? Internal markers were also placed.? Once we had accomplished the Boby mapping, we began the appropriate resections for placement of the prosthesis.? The plan was for a cruciate retaining right total knee arthroplasty. Once appropriate mapping had been accomplished retraction was established using manual retraction by surgical technicians and also the Boby leg positioner and retractors.? The knee was evaluated.? There was significant osteoarthritic change as well as slight flexion contracture.? Appropriate bone resection was accomplished using the Boby.? The femur was sized to a size 6.? Following femoral cuts, attention was directed to the tibia.? Osteophytes were removed prior to this portion of the procedure.? We had performed a minimal medial relea se at the beginning of the procedure to allow for placement of the array.? Proximal tibia was evaluated, and it was felt that appropriate size for the tibia was a size 6.? Tray was noted to fit nicely with good coverage.? Rim fit was accomplished with the size 6. A trial reduction was accomplished after osteophytes have been removed as well as the medial and lateral menisci.? We had removed the anterior cruciate ligament at the beginning of the case and preserved the posterior cruciate ligament.? Trial reduction was accomplished with a size 6 femoral cruciate retaining component and a size 6 CS tibial bearing insert which was 9 mm in thickness.? Alignment was felt to be appropriate as well.? Trial components were removed after the femur had been drilled.? Prior to removal of the tibial tray which had been pinned in position with appropriate rotation as determined by the Boby plan, we broached the tibia.? Subsequently, the 4 drill holes were made for the prosthetic component.? All trial components were removed, and the wound was irrigated.? Plans were made for insertion of the prosthetic components.? Prior to this, the patella was manually prepared.? After resection of the articular surface with the jogging system, it was measured and measured a 35 mm patella.? We resected approximately 10 mm of patella.? Patellar height was restored with the patellar component. Once again, the wound was irrigated.? The Tritanium tibia was impacted into position.? The beaded femur was then impacted into position in a cementless fashion. The CS tibial insert was placed prior to placement of the femoral component. The patella was pressed into position with a patellar clamp.? Exparel was injected about the components deep and superficially.? The knee was then copiously irrigated with betadine and saline and suctioned dry. Attention was then directed to closure. Closure was accomplished with 0 Vicryl in the fascial tissues.? This was followed by Surgiflo and vancomycin powder.? Following this, a 2-0 Monocryl was used in the subcutaneous tissues, and the skin was closed with skin hali.? Care was taken to assure an excellent subcutaneous as well as skin closure.? A sterile dressing was then placed consisting of Dermabond Prineo, OpSite, sterile soft roll including over the foot, and an Art wrap. The patient was returned the Recovery Room in a satisfactory condition. X-rays were obtained and reviewed there.? The patient will be discharged to the floor for postoperative rehabilitation and pain management. Related Problem List Diagnoses (1) Primary osteoarthritis of right knee:
[2022-10-31] MEDS: chlorhexidine gluconate 0.12% Btl 473 mL 30 ML MUCOUS MEM ×3 (14:01→20:35)
--- NOTE | 2022-10-31 14:32 | ANE.PACU2 ---
Inpatient post-anesthesia follow up: Airway intact: Yes Vital signs: Temperature 97.4 F Pulse Rate 63 Respiratory Rate 18 Blood Pressure 117/71 Pulse Oximetry 100 Oxygen Delivery Me thod Room Air Oxygen Flow Rate 6 Fraction of Inspir ed Oxygen Hydration adequate: Yes Nausea and vomiting: No Pain level: 2 Mental status: Baseline
[2022-10-31] MEDS: oxyCODONE 5 mg IR Tab/Cap PO ×2 (15:35→20:33)
--- NOTE | 2022-10-31 17:22 | PC.NURSE ---
Patient requested to have his Camilo Catheter removed at this time. Patient ambulated to the bathroom with a walker to attempt to have a bowel movement. Patient ambulated with a steady gait. Camilo removed.
[2022-10-31] MEDS: metformin 850 mg Tablet PO (17:30)
[2022-10-31] MEDS: iron polysaccharide complex 150 mg Capsule PO (17:31)
[2022-10-31] MEDS: calcium carbonate 500 mg Chew Tablet 1000 MG PO (17:31)
[2022-10-31] MEDS: sennosides-docusate Tablet 2 TAB PO (17:31)
[2022-10-31] MEDS: mupirocin oint 22 gm 1 APPLIC NASAL (17:33)
[2022-10-31] MEDS: CELEcoxib 200 mg Capsule PO (20:33)
[2022-11-01] VITALS (7 sets, daily range): BP systolic 101–111; BP diastolic 57–66; PULSE 55–64; RESP 16–18; TEMP 36.5–36.8; O2SAT 97–100
[2022-11-01] MEDS: oxyCODONE 5 mg IR Tab/Cap PO ×2 (03:30→09:09)
[2022-11-01 05:29] LABS: Basophils % 0.2 %; Eosinophils % 0.3 %; Hematocrit 36.1 % (42.0-52.0); Hemoglobin 11.9 g/dL (11.7-16.6); Lymphocytes # 1.9 10^3/uL (0.8-4.8); Lymphocytes % 16.1 %; Mean Corpuscular Hemoglobin 31.6 pg (28.0-34.0); Mean Corpuscular Volume 95.8 fl (80-94); Mean Platelet Volume 11.2 fL (7.4-10.4); Monocytes # 0.6 10^3/uL (0.2-0.9); Monocytes % 5.4 %; Neutrophils # 9.05 10^3/uL (1.8-7.7); Neutrophils % 77.7 %; Nucleated Red Blood Cells % 0 %; Platelet Count 141 10^3/cmm (130-400); Red Blood Count 3.77 10^6/uL (4.1-5.3); White Blood Count 11.7 10^3/uL (4.0-10.0)
[2022-11-01 05:45] LABS: Anion Gap 13.1 (5-19); Blood Urea Nitrogen 15 mg/dL (8-23); Calcium 8.2 mg/dL (8.5-10.5); Carbon Dioxide 25 mmol/L (22-29); Chloride 100 mmol/L (98-107); Glucose 151 mg/dL (65-115); Osmolality Calculated 282 mOsm/kg (285-295); Potassium 4.1 mmol/L (3.5-5.1); Sodium 134 mmol/L (136-145)
[2022-11-01] MEDS: acetaminophen 1,000 MG/100 ML PIGGYBACK 400 MG IV (05:50)
[2022-11-01] MEDS: ceFAZolin 2,000 MG in sodium chloride 0.9% (plus) 50 ML 100 MG IV (06:06)
[2022-11-01] MEDS: CELEcoxib 200 mg Capsule PO (09:10)
[2022-11-01] MEDS: metformin 850 mg Tablet PO (09:10)
[2022-11-01] MEDS: sennosides-docusate Tablet 2 TAB PO (09:10)
[2022-11-01] MEDS: metoprolol succinate ER (24 HR) 25 mg Tablet PO (09:10)
[2022-11-01] MEDS: cholecalciferol (vitamin D3) 1,000 unit Tablet 1000 UNIT PO (09:10)
[2022-11-01] MEDS: multivitamin therapeutic Tablet 1 TAB PO (09:10)
[2022-11-01] MEDS: iron polysaccharide complex 150 mg Capsule PO (09:10)
[2022-11-01] MEDS: aspirin 325 mg EC Tablet PO (09:10)
[2022-11-01] MEDS: calcium carbonate 500 mg Chew Tablet 1000 MG PO (09:10)
[2022-11-01] MEDS: pantoprazole DR 40 mg Tablet PO (09:11)
[2022-11-01] MEDS: lisinopril 10 mg Tablet PO (09:11)
[2022-11-01] MEDS: atorvastatin 40 mg Tablet PO (09:11)
[2022-11-01] MEDS: gabapentin 300 mg Capsule PO (09:11)
--- NOTE | 2022-11-01 09:17 | PC.CHAP ---
Pastoral Care Encounter/Spiritual Assessment Type of Contact [] Declined movie star visit [] Patient/Family/Request visit [] Outpatient visit [] Follow-up visit [] Physician referral [] Code/Alert [x] Routine visit [] Staff referral [] Actively dying [] Patient sleeping [] Family support [] [] Out of room [] Palliative care [] [] Receiving care in room [] Pre-surgical visit [] Trauma [] Long length of stay [] ICU visit [] Other: Relational/Emotional Strength [] Patient feels connected with others/family/visitors/staff [] Distress [] Loneliness/isolation [] Abandonment Spirituality of Patient [] Person of Elizabeth [] Attends Oriental Orthodox of their Elizabeth [] Believes in Prayer [] Reads Bible or Hindu materials [] There are Spiritual issues to be addressed Mass Spectrometry Manager Interventions [] Prayer [] Active listening [] Non-anxious presence [] Spiritual/emotional support [] Crisis/trauma care [] Spiritual counseling [] Bereavement support [] Provided bereavement packet [] Provided Bible/devotional materials [] Provided toy/stuffed animal, coloring book to patient or family member [] Provided Communion [] Anointing/[place] [] Salvation [] Completed spiritual assessment [] Other: Impact on Illness or Injury [] Angry [] Fearful [] Anxious [] Often cries [] Exhaustion [] Unable to work [] Unable to attend yazdanism [] Unable to walk/stand [] Unable to read [] Unable to drive [] Unable to eat/drink [] Unable to sleep [] Unable to be with family [] Patient intubated [] Other: Summary Time spent with patient
--- NOTE | 2022-11-01 13:00 | P.DS_ITS ---
Discharge Providers Date of Admission: 10/31/22 09:55 Date of Discharge: November 01, 2022 Attending Provider at Admission: Nancy Montez MD Attending Provider at Discharge: Nancy Montez MD Primary Care Provider: Candace Wagoner MD Diagnoses at Discharge Discharge Diagnosis (1) Primary osteoarthritis of right knee: Status: Acute (2) Status post total right knee replacement not using cement: Status: Acute Permanent problem details: Date of procedure: October 31, 2022 Diagnosis: Primary osteoarthritis right knee Post-op findings: Severe degenerative osteoarthritis with slight flexion contracture Procedure done: Right total knee arthroplasty with Boby guidance Implants: The [employer] total knee system with a size 6 triathlon beaded cruciate retaining femur right, a triathlon titanium tibial component size 6 beaded, a triathlon X3 tibial bearing CS insert size 6 X 9 mm and a beaded triathlon titanium asymmetric patella size 35 x 10 mm Reason for Visit Reason for Visit: Right total knee arthroplasty Brief History: This is an established 72 year old male patient here today for right total knee arthroplasty. He rates his pain a 6/10 at today's visit. He explains his pain has remained the same overall, but some days the pain gets worse. He reports constant pain that contributes to his lack of sleep. He has significant limitations in his activities of daily living. He states he walks as much as he can in spite of his pain. He states his pain is relieved by the brace. He understands the risks and complications of right total knee replacement, questions are answered, and consents are signed. Hospital Course Hospital Course This 72-year-old gentleman presented to the hospital for same-day surgery in the form of total knee arthroplasty with Boby assistance. The patient tolerated the procedure well and was admitted to the floor under observation status postoperatively. He had physical therapy and tolerated this well. He was sitting up in the chair when seen today. His calf is soft and nontender with no evidence of DVT. He is ambulatory and felt to be safe for discharge to home. There were no complications. Dressing is dry and intact. He is able to straight leg raise with minimal to no difficulty. Plans are made for his discharge home with home health. Physical Exam Const: COMMON NORMALS: no acute distress, average body habitus, patient oriented x3 and alert GENERAL APPEARANCE: cooperative and comfortable ORIENTATION/CONSCIOUSNESS: Yes awake HENMT: COMMON NORMALS: normocephalic and atraumatic HEAD & SCALP: normocephalic and atraumatic Eye: GENERAL EYE: appearance normal, both eyes and all related structures Chest: COMMONS NORMALS: normal inspection of the chest Resp: COMMON NORMALS: normal respiratory effort EFFORT & INSPECTION: Yes able to speak in complete sentences and Yes symmetric chest movement Extremity: NARRATIVE EXTREMITY EXAM: Art wrap removed from the patient's right lower extremity following right total knee arthroplasty. RIGHT LOWER EXTREMITY: Yes knee joint (Minimal to no ecchymosis.) Right knee: Yes inspection (No drainage or evidence of infection.), Yes palpation (Minimal to no tenderness.), Yes ROM (Able to straight leg raise.) and Yes neurovascular exam (Intact distally.) Neuro: COMMON NORMALS: patient oriented x3 SENSORIUM/ORIENTATION: Yes alert Psych: COMMON NORMALS: mental status grossly normal APPEARANCE: Yes grossly normal ATTITUDE: Yes calm and Yes engaged ATTENTION/CONCENTRATION: Yes attention grossly intact Skin: COMMON NORMALS: no rashes or lesions noted GENERAL SKIN EXAM: no rashes or lesions noted Urinary Catheter Management: Camilo: Cath Placed During This Visit: yes, but has since been removed by the nurse Reason for Continuing Indwelling Catheter: Decision to DC Catheter Urinary Catheter Date of Insertion: 10/31/22 Urinary Catheter Time of Insertion: 07:15 Date Urinary Catheter Removed: 10/31/22 Time Urinary Catheter Discontinued: 17:25 Discharge Data Studies Completed and Pending Completed Studies During Hospitalization Category Date Time Status XR knee RT 3V* [id number] Urgent Exams 10/31/22 09:56 Completed Radiology Impressions Knee X-Ray 10/31/22 09:56 IMPRESSION: Expected postoperative appearance of the knee. Laboratory Results WBC 11.7 10^3/uL (4.0-10.0) H 11/01/22 05:03 RBC 3.77 10^6/uL (4.1-5.3) L 11/01/22 05:03 Hgb 11.9 g/dL (11.7-16.6) 11/01/22 05:03 Hct 36.1 % (42.0-52.0) L 11/01/22 05:03 MCV 95.8 fl (80-94) H 11/01/22 05:03 MCH 31.6 pg (28.0-34.0) 11/01/22 05:03 MCHC 33.0 g/dL (30.0-36.0) 11/01/22 05:03 RDW 12.0 % (12.1-15.1) L 11/01/22 05:03 Plt Count 141 10^3/cmm (130-400) 11/01/22 05:03 MPV 11.2 fL (7.4-10.4) H 11/01/22 05:03 Neut % (Auto) 77.7 % 11/01/22 05:03 Lymph % (Auto) 16.1 % 11/01/22 05:03 Jack % (Auto) 5.4 % 11/01/22 05:03 Eos % (Auto) 0.3 % 11/01/22 05:03 Baso % (Auto) 0.2 % 11/01/22 05:03 Neut # (Auto) 9.05 10^3/uL (1.8-7.7) H 11/01/22 05:03 Lymph # (Auto) 1.9 10^3/uL (0.8-4.8) 11/01/22 05:03 Jack # (Auto) 0.6 10^3/uL (0.2-0.9) 11/01/22 05:03 Eos # (Auto) 0.0 10^3/uL (0.0-0.8) 11/01/22 05:03 Baso # (Auto) 0.0 10^3/uL (0.0-0.1) 11/01/22 05:03 Nucleated RBC % (auto) 0 % 11/01/22 05:03 Nucleated RBCs # 0.0 /100WBC 11/01/22 05:03 Sodium 134 mmol/L (136-145) L 11/01/22 05:03 Potassium 4.1 mmol/L (3.5-5.1) 11/01/22 05:03 Chloride 100 mmol/L (98-107) 11/01/22 05:03 Carbon Dioxide 25 mmol/L (22-29) 11/01/22 05:03 Anion Gap 13.1 (5-19) 11/01/22 05:03 BUN 15 mg/dL (8-23) 11/01/22 05:03 Creatinine 1.0 mg/dL (0.7-1.2) 11/01/22 05:03 GFR Calculation Not Reportable 11/01/22 05:03 Glucose 151 mg/dL (65-115) H 11/01/22 05:03 POC Glucose 101 mg/dL (70-110) 10/31/22 06:01 Calculated Osmolality 282 mOsm/kg (285-295) L 11/01/22 05:03 Calcium 8.2 mg/dL (8.5-10.5) L 11/01/22 05:03 Total Bilirubin 1.0 mg/dL (0.15-1.2) 10/24/22 10:40 AST 17 U/L (0-40) 10/24/22 10:40 ALT 10 U/L (0-41) 10/24/22 10:40 Alkaline Phosphatase 67 U/L (40-130) 10/24/22 10:40 Total Protein 7.0 g/dL (6.6-8.7) 10/24/22 10:40 Albumin 4.4 g/dL (3.5-5.2) 10/24/22 10:40 Globulin 2.6 g/dL (1.3-4.6) 10/24/22 10:40 Urine Color Yellow (Yellow) 10/24/22 10:40 Urine Appearance Clear (CLEAR) 10/24/22 10:40 Urine pH 6 (5-7) 10/24/22 10:40 Ur Specific [place] 1.015 (1.005-1.030) 10/24/22 10:40 Urine Protein Neg (Negative) 10/24/22 10:40 Urine Glucose (UA) Norm (Normal) 10/24/22 10:40 Urine Ketones Negative (Negative) 10/24/22 10:40 Urine Blood Neg (Negative) 10/24/22 10:40 Urine Nitrate Negative (Negative) 10/24/22 10:40 Urine Bilirubin Neg (Negative) 10/24/22 10:40 Urine Urobilinogen Norm mg/dL (Negative) 10/24/22 10:40 Ur Leukocyte Esterase Negative (Negative) 10/24/22 10:40 Vitals Last Vital Signs Temp 98.3 F 11/01/22 11:40 Pulse 61 11/01/22 11:40 Resp 16 11/01/22 11:40 BP 105/60 11/01/22 11:40 Pulse Ox 99 11/01/22 11:40 O2 Del Method 11/01/22 11:40 O2 Flow Rate 6 10/31/22 10:06 Discharge Plan Discharge Patient Disposition: Home Health Service Condition: Stable Prescriptions: New oxycodone 5 mg Tablet 5 mg PO Q4H PRN (Reason: Moderate Pain) 7 Days Qty: 30 0RF acetaminophen 500 mg Tablet 1,000 mg PO Q8H 15 Days Qty: 0 0RF aspirin 325 mg Tablet,Delayed Release (Dr/Ec) 325 mg PO DAILY 30 Days Qty: 0 0RF celecoxib 200 mg Capsule 200 mg PO DAILY Qty: 60 0RF Continued metoprolol succinate 25 mg tablet extended release 24 hr 25 mg PO DAILY gabapentin 300 mg capsule 300 mg PO BID lisinopril 10 mg tablet 10 mg PO DAILY 30 Days Qty: 30 5RF atorvastatin 80 mg tablet 40 mg PO DAILY Rx Instructions: 1/2 tab PO daily; cholecalciferol (vitamin D3) 2,000 unit tablet 4,000 unit PO DAILY metformin 850 mg tablet 850 mg PO BID omeprazole 20 mg capsule,delayed release(DR/EC) 20 mg PO DAILY ascorbate calcium (vitamin C) 500 mg tablet 500 mg PO DAILY glipizide 5 mg tablet 5 mg PO BID nitroglycerin [Nitrostat] 0.4 mg tablet, sublingual 0.4 mg SUBLINGUAL Q5M PRN (Reason: chest pain) Qty: 30 3RF clobetasol 0.05 % ointment 1 applic topical BID 14 Days Qty: 60 1RF Rx Instructions: to affected areas x 2 weeks then switch to halbetasol. Not for face or skin folds ketoconazole 2 % shampoo 1 applic topical .2 x weekly Qty: 120 3RF Rx Instructions: Lather into scalp 2 times weekly. Allow to sit on scalp for 5 minutes before rinsing. Humira(CF) Pen 40 mg/0.4 mL pen injector kit 40 mg SUBCUT .COMPLEX Qty: 2 3RF Rx Instructions: 40 mg SUBCUT every 2 weeks Discharge Orders: Discharge Order (Routine); Ordered 11/01/22 Ordered By: Nancy Montez Other Ambulatory Orders: DME: [facility] (Order) Location: None Selected Ordered By: Nancy Montez Referrals: Nancy Montez MD [Physician] - 11/14/22 8:45 am Discharge Diet: Usual diet and Diabetic Discharge Activity: Increase activity as tolerated, Limit activity as instructed, Use walker/crutches as instructed and As per PT/OT instructions Patient Instructions: Opioid Safety Activity Restrictions/Additional Instructions: Range of motion to right knee. Weightbearing as tolerated. Physical therapy to instruct in weightbearing, gait training, and strengthening as well as range of motion. Discharge Attestations Time Spent in Discharge Care*: greater than 30 min Specific Discharge Activities: educating patient, documenting/other paperwork and evaluating patient/reviewing data Quality Metrics Clinical Quality Measures [ No reported AMI, CVA or VTE this stay] Coding Level of Care Code Acute Code for Chg Fwd Diagnoses Primary osteoarthritis of right knee M17.11 Status post total right knee replacement not using cement Z96.651
[2022-11-01] MEDS: chlorhexidine gluconate 0.12% Btl 473 mL 30 ML MUCOUS MEM (13:12)
[2022-11-01] MEDS: acetaminophen 500 mg Tablet 1000 MG PO (13:12)
== END 2022-11-01 16:26 | disposition home health service (06) ==
LOC: MEDSURG 09:55
PROVIDERS: Admitting Provider Specialist; PCP Family Medicine; Visit Provider Specialist
PROC: 8E0Y0CZ Robotic Assisted Procedure of Lower Extremity, Open Approach (ICD-10-PCS; CPT 27447; principal; 2022-10-31 07:00)
DX: M17.11 Unilateral primary osteoarthritis, right knee (principal)
CPT/HCPCS: 20985; 27447; 36415; 36416; 51702; 73562; 80048; 80053; 81003; 82962; 85025; 97110; 97116; 97161; 97165; 97530; C1776; C9290; G0378; J0131; J0690; J1100; J2250; J2370; J2405; J2704; J2795; J3010; J3370; J3490; J7030

== ENCOUNTER → 2022-11-14 09:06 | Outpatient (BNVA) | payer OTHER, SELFPAY | PROVIDERS: PCP Family Medicine; Visit Provider Nurse Practitioner Family | DX: Z96.651 Presence of right artificial knee joint (principal) | CPT/HCPCS: 73560; 73565; 99024 ==

== ENCOUNTER 2022-11-22 15:21 | Outpatient (CLI) | payer OTHER, SELFPAY ==
--- NOTE | 2022-11-22 15:15 | MR_ITS ---
WS: [id number] MRI RIGHT SHOULDER HISTORY: right shoulder pain COMPARISON: 12/11/2017 TECHNIQUE: Multiplanar sequences of the shoulder joint are submitted. Numerous sequences are suboptimal due to motion. Patient was in extreme pain during this examination and was unable to remain still. Moderate narrowing of the AC joint with small osteophytes. There is a very small amount of increased T2 signal through the AC ligament. 5 mm osteophyte distal clavicle with minimal encroachment toward t he supraspinatus muscle. Mild subacromial impingement. Very minimal amount of fluid in the subacromia l bursa. Biceps tendon is smaller caliber as compared to the study from 2018 and partially subluxed. No os acromion. Numerous micrometallic artifacts are noted from prior surgery. Patient did not provide the history of prior surgery. No significant muscle atrophy. No retraction of the tendons. With the amount of motio n artifact small tears would be difficult to exclude. There is no large full-thickness tear identifie d. Fraying along the articular surfaces of the distal supraspinatus tendon. There is significant fray ing of particularly along the articular surface of the supraspinatus. Moderate narrowing of the glenohumeral joint. Small caliber posterior labrum with a tear. This is new since the prior study. MR/MR shoulder RT wo con* [id number] IMPRESSION: 1. Quality of this examination is compromised by motion artifact. 2. Postsurgical changes from prior rotator cuff repair. 3. Small caliber biceps tendon with atrophy and partial subluxation is new. 4. No full-thickness rotator cuff tear identified. There is significant frayin g along the surfaces of the distal supraspinatus tendon. 5. Moderate glenohumeral joint narrowing. 6. New abnormal signal in the posterior labrum suspicious for tear. 7. Mild AC joint arthritis with a 5 mm osteophyte encroaching toward the supra spinatus muscle but no deformity.
== END 2022-11-22 15:22 | disposition home or self-care (01) ==
LOC: RAD 15:23
PROVIDERS: PCP Family Medicine; Visit Provider Specialist
DX: M19.011 Primary osteoarthritis, right shoulder
CPT/HCPCS: 73221

== ENCOUNTER → 2022-12-20 10:22 | Outpatient (BNVA) | payer OTHER, SELFPAY | PROVIDERS: PCP Family Medicine; Visit Provider Nurse Practitioner Family | DX: Z96.651 Presence of right artificial knee joint (principal); Z47.89 Encounter for other orthopedic aftercare | CPT/HCPCS: 73560; 73565; 99024; 99213 ==

== ENCOUNTER 2023-01-02 14:34 | Outpatient (CLI) | payer OTHER, SELFPAY ==
[2023-01-02 16:16] LABS: Basophils # 0.1 10^3/uL (0.0-0.1); Eosinophils # 0.4 10^3/uL (0.0-0.8); Eosinophils % 6.4 %; Hematocrit 41.3 % (42.0-52.0); Hemoglobin 13.5 g/dL (11.7-16.6); Lymphocytes # 1.8 10^3/uL (0.8-4.8); Lymphocytes % 28.5 %; Mean Corpuscular HGB Conc 32.7 g/dL (30.0-36.0); Mean Corpuscular Hemoglobin 32.4 pg (28.0-34.0); Mean Platelet Volume 10.9 fL (7.4-10.4); Monocytes # 0.3 10^3/uL (0.2-0.9); Monocytes % 5.2 %; Neutrophils # 3.58 10^3/uL (1.8-7.7); Neutrophils % 58.4 %; Nucleated Red Blood Cells % 0 %; Platelet Count 173 10^3/cmm (130-400); Red Blood Count 4.17 10^6/uL (4.1-5.3); Red Cell Distribution Width 12.4 % (12.1-15.1); White Blood Count 6.1 10^3/uL (4.0-10.0)
[2023-01-02 16:37] LABS: Alanine Aminotransferase 9 U/L (0-41); Albumin Level 4.4 g/dL (3.5-5.2); Alkaline Phosphatase 63 U/L (40-130); Anion Gap 13.5 (5-19); Aspartate Amino Transferase 15 U/L (0-40); Blood Urea Nitrogen 11 mg/dL (8-23); Calcium 8.5 mg/dL (8.5-10.5); Carbon Dioxide 28 mmol/L (22-29); Chloride 104 mmol/L (98-107); Chol HDL Ratio 3.57 mg/dL (1.0-5.00); Cholesterol 175 mg/dL (0-200); Globulin 2.2 g/dL (1.3-4.6); Glucose 88 mg/dL (65-115); HDL Cholesterol 49 mg/dL (60-100); LDL Cholesterol Calculated 96 mg/dL (50-129); LDL HDL Ratio 1.96 RATIO (0.00-3.22); Osmolality Calculated 291 mOsm/kg (285-295); Potassium 4.5 mmol/L (3.5-5.1); Sodium 141 mmol/L (136-145); Total Bilirubin 0.5 mg/dL (0.15-1.2); Total Protein 6.6 g/dL (6.6-8.7); Triglycerides 152 mg/dL (0-150)
[2023-01-02 17:00] LABS: Hepatitis B Core AB, Total Non-Reactive (Nonreactive); Hepatitis B Surface Antigen Non-Reactive (Nonreactive)
[2023-01-02 17:25] LABS: Hepatitis C Virus Antibody Non-Reactive (Nonreactive)
[2023-01-04 12:21] LABS: Quantiferon Mitogen 9.24 IU/mL; Quantiferon Nil 0.07 IU/mL; Quantiferon Plus TB1 <0.00 IU/mL; Quantiferon TB Gold NEGATIVE (NEGATIVE)
== END 2023-01-02 14:35 | disposition home or self-care (01) ==
LOC: LAB 14:50
PROVIDERS: PCP Family Medicine; Visit Provider Nurse Practitioner Family
DX: L40.0 Psoriasis vulgaris (principal); Z79.899 Other long term (current) drug therapy; Z71.89 Other specified counseling; L21.8 Other seborrheic dermatitis; L81.4 Other melanin hyperpigmentation
CPT/HCPCS: 36415; 80048; 80061; 80076; 85025; 86480; 86704; 86706; 86803; 87340; 99214

== ENCOUNTER → 2023-02-19 13:09 | Outpatient (BNVA) | payer OTHER, SELFPAY | PROVIDERS: PCP Family Medicine; Visit Provider Specialist | DX: Z96.651 Presence of right artificial knee joint (principal); M17.11 Unilateral primary osteoarthritis, right knee | CPT/HCPCS: 73560; 73565; 99213 ==

== ENCOUNTER 2023-02-20 10:29 | Outpatient (RCR) | payer OTHER, SELFPAY | END 2023-02-23 23:59 | disposition home or self-care (01) | LOC: SPT 10:29 | PROVIDERS: Visit Provider Family Medicine | DX: Z47.1 Aftercare following joint replacement surgery (principal); Z96.651 Presence of right artificial knee joint | CPT/HCPCS: 97110; 97140; 97161 ==

== ENCOUNTER 2023-02-24 06:00 | Outpatient (RCR) | payer OTHER, SELFPAY | END 2023-03-20 23:59 | disposition home or self-care (01) | LOC: SPT 06:00 | PROVIDERS: Visit Provider Family Medicine | DX: Z47.1 Aftercare following joint replacement surgery (principal); Z96.651 Presence of right artificial knee joint | CPT/HCPCS: 97110; 97140; 97530 ==

== ENCOUNTER → 2023-03-20 13:09 | Outpatient (BNVA) | payer OTHER, SELFPAY | PROVIDERS: Visit Provider Nurse Practitioner Family | DX: Z96.651 Presence of right artificial knee joint (principal) | CPT/HCPCS: 73560; 73565; 99213 ==

== ENCOUNTER → 2023-04-11 13:37 | Outpatient (BNVA) | payer OTHER, SELFPAY | PROVIDERS: Visit Provider Nurse Practitioner Family | DX: L40.0 Psoriasis vulgaris (principal); Z79.899 Other long term (current) drug therapy; L21.8 Other seborrheic dermatitis; L81.4 Other melanin hyperpigmentation; L40.59 Other psoriatic arthropathy | CPT/HCPCS: 99214 ==

== ENCOUNTER → 2023-06-06 14:03 | Outpatient (BNVA) | payer OTHER, SELFPAY | PROVIDERS: PCP Family Medicine; Visit Provider Internal Medicine Cardiovascular Disease | DX: R07.89 Other chest pain (principal); I35.0 Nonrheumatic aortic (valve) stenosis; E78.2 Mixed hyperlipidemia; E11.9 Type 2 diabetes mellitus without complications; Z79.84 Long term (current) use of oral hypoglycemic drugs; I10 Essential (primary) hypertension; F17.200 Nicotine dependence, unspecified, uncomplicated | CPT/HCPCS: 99214 ==

== ENCOUNTER → 2023-07-23 13:35 | Outpatient (BNVA) | payer OTHER, SELFPAY | PROVIDERS: PCP Family Medicine; Visit Provider Dermatology | DX: L40.0 Psoriasis vulgaris (principal); L21.8 Other seborrheic dermatitis; L81.4 Other melanin hyperpigmentation; L40.59 Other psoriatic arthropathy | CPT/HCPCS: 99214 ==

== ENCOUNTER 2023-12-19 14:45 | Outpatient (CLI) | payer OTHER, SELFPAY ==
[2023-12-22 11:55] LABS: Quantiferon Mitogen 9.97 IU/mL; Quantiferon Nil 0.01 IU/mL; Quantiferon TB Gold NEGATIVE (NEGATIVE)
== END 2023-12-19 14:46 | disposition home or self-care (01) ==
LOC: LAB 14:46
PROVIDERS: PCP Family Medicine; Visit Provider Nurse Practitioner Family
DX: L40.0 Psoriasis vulgaris (principal); L21.8 Other seborrheic dermatitis; L81.4 Other melanin hyperpigmentation; L40.59 Other psoriatic arthropathy
CPT/HCPCS: 36415; 86480; 99214

== ENCOUNTER → 2023-12-27 15:06 | Outpatient (BNVA) | payer OTHER, SELFPAY | PROVIDERS: PCP Family Medicine; Visit Provider Internal Medicine Cardiovascular Disease | DX: I35.0 Nonrheumatic aortic (valve) stenosis (principal); E78.2 Mixed hyperlipidemia; I10 Essential (primary) hypertension; E11.9 Type 2 diabetes mellitus without complications; Z79.84 Long term (current) use of oral hypoglycemic drugs | CPT/HCPCS: 99214 ==

== ENCOUNTER 2024-01-07 12:59 | Outpatient (RCR) | payer OTHER, SELFPAY | END 2024-01-25 23:59 | disposition home or self-care (01) | LOC: SOT 12:59 | PROVIDERS: PCP Family Medicine; Visit Provider Family Medicine | DX: M79.645 Pain in left finger(s) (principal) | CPT/HCPCS: 97022; 97110; 97165; 97530 ==

== ENCOUNTER 2024-01-26 06:00 | Outpatient (RCR) | payer OTHER, SELFPAY | END 2024-02-24 23:59 | disposition home or self-care (01) | LOC: SOT 06:00 | PROVIDERS: PCP Family Medicine; Visit Provider Family Medicine | DX: M79.645 Pain in left finger(s) (principal) | CPT/HCPCS: 97022; 97110; 97140 ==

== ENCOUNTER → 2024-04-22 13:25 | Outpatient (BNVA) | payer OTHER, SELFPAY | PROVIDERS: PCP Family Medicine; Visit Provider Nurse Practitioner Family | DX: L40.0 Psoriasis vulgaris (principal); L21.8 Other seborrheic dermatitis; L81.4 Other melanin hyperpigmentation; L40.59 Other psoriatic arthropathy; Z72.0 Tobacco use | CPT/HCPCS: 99214 ==

== ENCOUNTER → 2024-06-25 10:28 | Outpatient (BNVA) | payer OTHER, SELFPAY | PROVIDERS: PCP Family Medicine; Visit Provider Nurse Practitioner Family | DX: L40.0 Psoriasis vulgaris (principal); L21.8 Other seborrheic dermatitis; L81.4 Other melanin hyperpigmentation; L40.59 Other psoriatic arthropathy; Z72.0 Tobacco use | CPT/HCPCS: 17000; 99214 ==

== ENCOUNTER → 2024-07-09 14:26 | Outpatient (BNVA) | payer OTHER, SELFPAY | PROVIDERS: PCP Family Medicine; Visit Provider Internal Medicine Cardiovascular Disease | DX: R07.9 Chest pain, unspecified (principal); E78.2 Mixed hyperlipidemia; I10 Essential (primary) hypertension; I35.0 Nonrheumatic aortic (valve) stenosis; E11.9 Type 2 diabetes mellitus without complications; F17.200 Nicotine dependence, unspecified, uncomplicated | CPT/HCPCS: 93005; 99214 ==

== ENCOUNTER → 2024-08-06 13:59 | Outpatient (BNVA) | payer OTHER, SELFPAY | PROVIDERS: PCP Family Medicine; Visit Provider Nurse Practitioner Family | DX: L40.0 Psoriasis vulgaris (principal); L40.59 Other psoriatic arthropathy; L21.8 Other seborrheic dermatitis; L81.4 Other melanin hyperpigmentation; L57.0 Actinic keratosis | CPT/HCPCS: 17000; 99214 ==

== ENCOUNTER 2024-09-01 08:21 | Outpatient (CLI) | payer OTHER, SELFPAY ==
--- NOTE | 2024-09-01 08:30 | USCV_ITS ---
Zacarias Moyer Age: 74 Gender: M : 1950 Exam Date: 09/01/2024 08:36 Ordering Phys: Juanjose Muñoz MD ([email or web address]) Technologist: CT Exam Location: [facility] [place] Indication: cp,as BP: 131 / 82 HR: 70 Rhythm: Sinus Technical Quality: Adequate MEASUREMENTS (Male / Female) Normal Values 2D ECHO LVOT Diameter 2.1 cm LV Ejection Fraction MOD 4C 59.6 % LV Ejection Fraction MOD 2C 63.3 % LV Ejection Fraction 2C AL 63.0 % LA Diameter 4.8 cm RA Systolic Volume 4C AL 66.5 ml RA Systolic Volume 4C MOD 64.6 ml LA Sys Volume AL 53.4 cm cubed LA Sys Volume Index AL 25.6 cm cubed/m squared Aorta at Sinotubular Diameter 2.5 cm IVC Diameter 1.8 cm M-MODE LA Ao Ratio MM 1.4 AV Cusp Separation MM 1.2 cm DOPPLER AV Peak Velocity 286.0 cm/s LVOT Peak Velocity 93.0 cm/s AV Area Cont Eq vti 1.2 cm squared AV Area Cont Eq pk 1.2 cm squared MV Peak Velocity 81.0 cm/s MV Area PHT 3.4 cm squared Mitral E to A Ratio 1.5 TV Peak Velocity 199.7 cm/s TR Peak Velocity 272.0 cm/s TR Peak Gradient 29.6 mmHg TR Mean Velocity 195.0 cm/s TR Mean Gradient 17.6 mmHg TR Velocity Time Integral 64.3 cm PV Peak Velocity 98.0 cm/s FINDINGS Left Ventricle Normal left ventricular size and systolic function, EF 60%.. No regional wall motion abnormalities. Mild left ventricular hypertrophy. No regional wall motion abnormalities. Right Ventricle The right ventricle is normal in size and function. Right Atrium The right atrium is normal in size. Left Atrium The left atrium is normal in size. Mitral Valve No gross abnormalities noted Aortic Valve Moderate aortic valve calcification. Moderate aortic valve stenosis, mean gradient 17.7 mmHg, MAGGIE 1.2 cm squared. Trace aortic valve regurgitation. Peak velocity of 2.9 m/s with a peak gradient of 34 mmHg Tricuspid Valve Trace tricuspid valve regurgitation. Estimated pulmonary artery peak systolic pressure 33 mmHg Pulmonic Valve No gross abnormalities noted . Pericardium Normal pericardium without effusion. Aorta Normal ascending aorta dimension. IVC Normal inferior vena cava. CONCLUSIONS Normal left ventricular size and systolic function, EF 60%.. No regional wall motion abnormalities. Mild left ventricular hypertrophy. No regional wall motion abnormalities. Moderate aortic valve calcification. Moderate aortic valve stenosis, mean gradient 17.7 mmHg, MAGGIE 1.2 cm squared. Trace aortic valve regurgitation. Peak velocity of 2.9 m/s with a peak gradient of 34 mmHg. Trace tricuspid valve regurgitation. Estimated pulmonary artery peak systolic pressure 33 mmHg. There is no pericardial effusion. There are no intracardiac masses. Compared to the study from 02/16/2022, there may not be a significant change Dr Juanjose Muñoz MD [facility] (Electronically Signed) Final Date: 05 September 2024 16:01 S
== END 2024-09-01 08:22 | disposition home or self-care (01) ==
LOC: RAD 08:21
PROVIDERS: PCP Family Medicine; Visit Provider Internal Medicine Cardiovascular Disease
DX: I35.0 Nonrheumatic aortic (valve) stenosis (principal); I35.8 Other nonrheumatic aortic valve disorders; R06.09 Other forms of dyspnea
CPT/HCPCS: 93306

== ENCOUNTER → 2024-10-09 11:19 | Outpatient (BNVA) | payer OTHER, SELFPAY | PROVIDERS: PCP Family Medicine; Visit Provider Nurse Practitioner Family | DX: I10 Essential (primary) hypertension (principal); I35.0 Nonrheumatic aortic (valve) stenosis; I20.9 Angina pectoris, unspecified; E11.9 Type 2 diabetes mellitus without complications; F17.200 Nicotine dependence, unspecified, uncomplicated; Z79.84 Long term (current) use of oral hypoglycemic drugs | CPT/HCPCS: 99214 ==

== ENCOUNTER → 2024-10-23 12:33 | Outpatient (BNVA) | payer OTHER, SELFPAY | PROVIDERS: PCP Family Medicine; Visit Provider Nurse Practitioner Family | DX: L40.0 Psoriasis vulgaris (principal); L40.59 Other psoriatic arthropathy; L81.4 Other melanin hyperpigmentation; L60.8 Other nail disorders | CPT/HCPCS: 99214 ==

== ENCOUNTER → 2024-11-13 14:25 | Outpatient (BNVA) | payer OTHER, SELFPAY | PROVIDERS: PCP Family Medicine; Visit Provider Nurse Practitioner Family | DX: L40.0 Psoriasis vulgaris (principal); L40.59 Other psoriatic arthropathy | CPT/HCPCS: 96372 ==

== ENCOUNTER → 2025-02-23 13:12 | Outpatient (BNVA) | payer OTHER, SELFPAY | PROVIDERS: PCP Family Medicine; Visit Provider Nurse Practitioner Family | DX: L40.0 Psoriasis vulgaris (principal); L40.59 Other psoriatic arthropathy; Z79.899 Other long term (current) drug therapy; L57.8 Other skin changes due to chronic exposure to nonionizing radiation; L81.4 Other melanin hyperpigmentation | CPT/HCPCS: 99214 ==

== ENCOUNTER → 2025-04-06 14:53 | Outpatient (BNVA) | payer OTHER, SELFPAY | PROVIDERS: PCP Family Medicine; Visit Provider Internal Medicine Cardiovascular Disease | DX: I35.0 Nonrheumatic aortic (valve) stenosis (principal); I10 Essential (primary) hypertension; E78.5 Hyperlipidemia, unspecified; E11.9 Type 2 diabetes mellitus without complications; Z79.84 Long term (current) use of oral hypoglycemic drugs; F17.200 Nicotine dependence, unspecified, uncomplicated | CPT/HCPCS: 99214 ==

== ENCOUNTER 2025-06-23 16:05 | Outpatient (CLI) | payer OTHER, SELFPAY | END 2025-06-23 16:06 | disposition home or self-care (01) | PROVIDERS: PCP Family Medicine; Visit Provider Nurse Practitioner Family | DX: E11.42 Type 2 diabetes mellitus with diabetic polyneuropathy (principal); L60.3 Nail dystrophy; G62.9 Polyneuropathy, unspecified; Z79.84 Long term (current) use of oral hypoglycemic drugs | CPT/HCPCS: 11721; 36415; 86480; 99203 ==